=== PATIENT | male | born 2005 | race Two or more races ===

== ENCOUNTER 2023-07-01 01:24 | Inpatient (IN) | payer MEDICAID, SELFPAY ==
[2023-07-01] VITALS (10 sets, daily range): BP systolic 103–132; BP diastolic 67–90; PULSE 73–109; RESP 16–18; TEMP 36.8–38; O2SAT 92–99; BMI 18.6; BMI 18.1
--- NOTE | 2023-07-01 01:47 | CRLHL7_ITS ---
For Patients: As a result of the Century Cures Act, medical imaging exams and procedure reports are released immediately into your electronic medical record. You may view this report before your referring provider. If you have questions, please contact your health care provider. INDICATION: Abdominal pain TECHNIQUE: CT abdomen and pelvis acquired with 46 cc Isovue 370 IV contrast. COMPARISON: Abdominal MR February 01, 2022 FINDINGS: Lower chest: Unremarkable. Liver: Unremarkable. Spleen: Unremarkable. Pancreas: Unremarkable. Gallbladder and bile ducts: Unremarkable. Adrenal glands: Unremarkable. Kidneys: Unremarkable. GI tract: Multiple loops of dilated small bowel measuring up to 3.7 cm in diameter. Transition point is in the mid abdomen on images 79-87. No free air or pneumatosis. No free fluid. No swirled appearance of the mesenteric vessels. There is a small bowel feces sign directly proximal to the site of obstruction. The colon is decompressed. Vascular structures: Unremarkable. Lymph nodes: Unremarkable. Miscellaneous: Unremarkable. Pelvic Organs: Unremarkable. Bones: Unremarkable for age. IMPRESSION: Small-bowel obstruction. Transition point appears to be within the mid abdomen. No pneumatosis or free air. Please note that all CT scans at this facility use dose modulation, iterative reconstruction, and/or weight-based dosing when appropriate to reduce radiation dose to as low as reasonably achievable. Dictated by Margarita Garcia MD @ 07/01/2023 2:47:54 AM (Electronically Signed)
--- NOTE | 2023-07-01 01:49 | ED.ABDPAIN ---
HPI - Abdominal Pain General Chief Complaint: Abdominal Pain Stated Complaint: Abdominal Pain Time Seen by Provider: 07/01/23 01:47 History of Present Illness HPI narrative: Patient is a 17-year-old young man who comes in with upper abdominal pain. He states he has had pain for the last 24 hours. He has had low-grade fever no dysuria no nausea no vomiting. States she has been having normal bowel movements. Patient has a history of congenital hernia repair in the distant past as well as pancreatic cyst choledocholithiasis and a distant history of gastrostomy tube placement. Patient states he is currently taking no medications and has had no further problems with his abdomen since being seen approximately a 15 months ago at which time he was treated and released for abdominal pain which resolved on its own although he did have 2 filling defects in the common bile duct on CT scan as well as mild gallbladder distension. Patient has otherwise been feeling fine it has been eating and drinking normally until the last 24 hours. Related Data Home Medications Medication Instructions Recorded Confirmed No Known Home Medications 07/01/23 07/01/23 Allergies Allergy/AdvReac Type Severity Reaction Status Date / Time No Known Drug Allergies Allergy Verified 07/01/23 01:35 Review of Systems Status of ROS Reports: 10 or more systems reviewed and unremarkable except as noted in History and below [facility] Medical History Pancreatic cyst ?K86.2 - Cyst of pancreas (ICD-10) SBO (small bowel obstruction) ?K56.609 - Unspecified intestinal obstruction, unspecified as to partial versus complete obstruction (ICD-10) Dyspepsia ?R10.13 - Epigastric pain (ICD-10) Abdominal hernia ?K46.9 - Unspecified abdominal hernia without obstruction or gangrene (ICD-10) Social History Non-prescribed substance use: denies use Exam Narrative: Exam Narrative: EXAM GENERAL: Patient appears comfortable and well. EYES: No scleral icterus. LYMPH: No supraclavicular or cervical lymphadenopathy. SKIN: Visible skin seen during exam normal or with benign process only. EXT: No dependent lower extremity pedal edema. HEART: Regular rate and rhythm with no murmurs, rubs, or gallops. LUNGS: Clear to auscultation bilaterally with no crackles or wheezes. ABD: Soft, non tender, non distended. Previous incisions noted. PSYCH: Good eye contact, speech is not pressured. Const: Vital Signs, click to edit/add: Vital Signs - 24 hr 07/01/23 01:30 07/01/23 03:19 Temperature 100.4 F H 99.7 F H Pulse Rate [Pulse Oximeter] 104 H 87 Respiratory Rate 18 16 Blood Pressure [Ri ght Upper Arm] 132/90 H 120/77 Pulse Oximetry 99 98 Oxygen Delivery Me thod Room Air Room Air Course Course ED Course: Patient seen examined IV placed. Normal saline given. Blood cultures CBC CMP amylase lactate UA CT abdomen pelvis ordered. Vital Signs Vital signs: Initial Vital Signs Temperature 100.4 F H 07/01/23 01:30 Temperature Source Temporal Artery Scan 07/01/23 01:30 Pulse Rate 104 H 07/01/23 01:30 Respiratory Rate 18 07/01/23 01:30 Blood Pressure 132/90 H 07/01/23 01:30 Blood Pressure Mean 104 07/01/23 01:30 Blood Pressure Position Supine 07/01/23 01:30 Pulse Oximetry 99 07/01/23 01:30 Oxygen Delivery Method Room Air 07/01/23 01:30 Vital Signs Temperature 100.4 F H 07/01/23 01:30 Pulse Rate 104 H 07/01/23 01:30 Respiratory Rate 18 07/01/23 01:30 Blood Pressure 132/90 H 07/01/23 01:30 Pulse Oximetry 99 07/01/23 01:30 Oxygen Delivery Method Room Air 07/01/23 01:30 Temperature 99.7 F H 07/01/23 03:19 Pulse Rate 87 07/01/23 03:19 Respiratory Rate 16 07/01/23 03:19 Blood Pressure 120/77 07/01/23 03:19 Pulse Oximetry 98 07/01/23 03:19 Oxygen Delivery Method Room Air 07/01/23 03:19 MDM - Abdominal Pain MDM Narrative Medical decision making narrative: Patient is a 17-year-old gentleman who has history of diaphragmatic hernia as a child with small-bowel obstructions subsequently who presents with abdominal pain. His CT of the abdomen pelvis is consistent with small-bowel obstruction. Patient also has history of cholelithiasis and questionable choledocholithiasis. Patient has no significant right upper quadrant pain but his pain is in the mid abdomen consistent with small-bowel obstruction. He does have a white blood cell count as well as low-grade fever. Blood cultures were collected. Lactate was normal. I did begin hydration with normal saline. His initial potassium has come back elevated at 6.3 although lab tells me this is likely an error. Repeat is pending. Also noted is a elevated bilirubin and AST which could be consistent with underlying gallbladder disease. Repeat potassium is 4.5. Patient is discuss with the hospitalist and is admitted for further evaluation with likely surgery consult in the morning with a consideration of gallbladder ultrasound workup of elevated bilirubin as well as continued treatment and workup of small-bowel obstruction. I do not believe he needs a NG tube at this point. Differential Diagnosis Differential diagnosis: Likely abdominal pain, acute appendicitis, calculus of kidney, constipation, diverticulitis, gastroenteritis, pancreatitis and small bowel obstruction Lab Data Labs: Lab Results 07/01/23 Range/Units 01:55 WBC 11.81 H (4.50-11.00) K/uL RBC 6.15 H (4.30-5.90) m/uL Hgb 17.9 H (13.5-17.5) gm/dL Hct 50.3 (37.0-53.0) % MCV 82 (80-100) fL MCH 29 (26-34) pg MCHC 36 (32-36) gm/dL RDW Coeff of Ronald 12.3 (11.5-15.5) % Plt Count 332 (140-440) K/uL Neut % (Auto) 88.1 H (42.0-72.0) % Lymph % (Auto) 6.4 L (20-44) % Marion % (Auto) 5.3 (0.0-11.0) % Eos % (Auto) 0.0 (0.0-7.0) % Baso % (Auto) 0.1 (0.0-3.0) % Neut # (Auto) 10.40 H (1.7-7.0) K/uL Lymph # (Auto) 0.80 L (0.90-2.90) K/uL Marion # (Auto) 0.60 (0.00-0.90) K/UL Eos # (Auto) 0.00 (0.00-0.50) K/uL Baso # (Auto) 0.00 (0.00-0.30) K/uL Abs Immat Gran (auto) 0.00 (0.00-0.30) K/uL Imm/Tot Granulo (auto) 0.1 % Sodium 138 (135-149) mmol/L Potassium 6.3 H* (3.6-5.1) mmol/L Chloride 95 L (96-114) mmol/L Carbon Dioxide 22 (20-32) mmol/L Anion Gap 21 H (7-15) mEq/L BUN 15 (5-24) mg/dL Creatinine 0.7 (0.6-1.2) mg/dL Estimated Creat Clear 103.45 Estimated GFR 136 ml/min Glucose 125 H (60-115) mg/dL Lactate 1.6 (0.5-1.9) mmol/L Calcium 10.2 (8.7-10.8) mg/dL Total Bilirubin 3.1 H (0.1-1.5) mg/dL AST 76 H (12-35) U/L ALT 20 (4-50) U/L Alkaline Phosphatase 96 (65-260) U/L Total Protein 10.4 H (6.0-8.3) g/dL Amylase 100 H (18-89) U/L Urine Color Maddie A (Yellow) Urine Appearance Clear (Clear) Urine pH 6.0 (5.0-8.5) Ur Specific Broad Top >= 1.030 (1.000-1.030) Urine Protein 2+ A (Negative) Urine Glucose (UA) Negative (Negative) Urine Ketones 3+ A (Negative) Urine Blood Negative (Negative) Urine Nitrite Negative (Negative) Urine Bilirubin 1+ A (Negative) Urine Urobilinogen 0.2 (0.2-1.0) Ur Leukocyte Esterase Negative (Negative) Urine RBC 0-2 (0-2) Urine WBC 2-5 (0-5) Ur Squamous Epith Cells Few (None-Few) Urine Bacteria Few A (None) Fine Granular Casts Few A (None) Discharge Plan Discharge Clinical Impression: Partial small bowel obstruction Patient Disposition: Admitted As Observation Condition: Stable Activity Level: Other Discharge Diet: Other Prescriptions: No Action No Known Home Medications Follow Up/Referrals: Marlee Olivo, ATC [Heel Top Lift Splitter Certified] -
[2023-07-01 02:11] LABS: Lactate* 1.6 mmol/L (0.5-1.9)
[2023-07-01 02:12] LABS: Basophils Percent Auto 0.1 % (0.0-3.0); Hematocrit 50.3 % (37.0-53.0); Hemoglobin* 17.9 gm/dL (13.5-17.5); Immature Granulocytes Pct Auto 0.1 %; Lymphocytes Percent Auto 6.4 % (20-44); Mean Corpuscular HGB Conc 36 gm/dL (32-36); Mean Corpuscular Hemoglobin 29 pg (26-34); Mean Corpuscular Volume 82 fL (80-100); Monocytes Percent Auto 5.3 % (0.0-11.0); Neutrophils Percent Auto 88.1 % (42.0-72.0); Platelet Count* 332 K/uL (140-440); RDW Coefficient of Variation % 12.3 % (11.5-15.5); Red Blood Count 6.15 m/uL (4.30-5.90); White Blood Count* 11.81 K/uL (4.50-11.00)
[2023-07-01 02:14] LABS: Slide Review Reflex No
[2023-07-01 02:15] LABS: Appearance Urine Clear (Clear); Bilirubin Urine 1+ (Negative); Blood Urine Negative (Negative); Color Urine Amber (Yellow); Glucose Urine Negative (Negative); Ketones Urine 3+ (Negative); Leukocyte Esterase Urine Negative (Negative); Nitrite Urine Negative (Negative); Protein Urine 2+ (Negative); Specific Gravity Urine >= 1.030 (1.000-1.030); Urobilinogen Urine 0.2 (0.2-1.0)
[2023-07-01 02:25] LABS: Bacteria Urine Few; Fine Granular Casts Urine Few; RBC Urine 0-2 (0-2); Squamous Epithelial Cell Urine Few (None-Few)
[2023-07-01] MEDS: ACETAMINOPHEN 500 MG TABLET 1000 MG PO (02:25)
[2023-07-01] MEDS: 0.9 % SODIUM CHLORIDE 1000 ml 1,000 ML IV (02:25)
--- OUTSIDE RECORDS SUMMARY | 2023-07-01 02:42 | XMS_ITS | Continuity of Care Document ---
Author Name Unknown Organization [facility] Address [address] [address] [place] [address] Phone Care Team Providers Care Cloth Shrinking Supervisor Name Role Phone Russ Wilkins MD Unavailable Unavailable Allergies, Adverse Reactions, Alerts Substance Reaction Status Criticality No Known Allergies Active No Inform ation Medications Medication Instructions Dosage Effective Dates (start - stop) Status Comments No Drug Therapy Prescribed Procedures Procedure Date Offic/outpt E&m Estab Mod-hi 2 Offic/outpt E&m Estab Mod-hi 2 19 Offic/outpt E&m New Mod-hi Routine Serum Collection Gg; Iga, Igd, Igg, Igm, Ea Advance Directives Directive Yes / No Effective Date File Name No Information Encounters Encounter Description Practice Location Reason(s) For Visit Diagnoses Date Provider Providers Copied on Encounter [facility], [address] [address], [place], [id number], [place] tel:[phone] [facility] No Information 2 Claudette Solano. [address] [facility], [place], [place], [id number], [place]. tel:[phone] [facility], [address] [address], [place], [id number], [place] tel:[phone] [facility] No Information 2 Claudette Solano. [address] [facility], [address] [facility] [address], [place], [place], [id number], [place]. tel:[phone] Offic/outpt E&m [facility] 2 [facility], [address] [address], [place], [id number], [place] tel:[phone] [facility] Symptoms or Concerns (chief complaint) Short statureG tube feedings 9 No Information Offic/outpt E&m [facility] 2 [facility], [address] [address], [place], [id number], [place] tel:[phone] [facility] Symptoms or Concerns (chief complaint) G tube feedingsShort stature 9 No Information Offic/outpt E&m [facility], [address] [address], [place], [id number], [place] tel:[phone] [facility] Symptoms or Concerns (chief complaint) Short statureG tube feedings 9 No Information Family History Family Member Type Diagnosis Age At Onset Father Problem (finding) Alive and well Mother Problem (finding) gallbladder disease Sister Problem (finding) Alive and well Immunizations Vaccine Date Status Comments SARS-COV-2 (COVID-19) vaccin e, mRNA, spike protein, LNP, preservative free, 30 mcg/0.3mL dose administered Note: [facility] bi-direct ional interface ; Source: Other Registry SARS-COV-2 (COVID-19) vaccin e, mRNA, spike protein, LNP, preservative free, 30 mcg/0.3mL dose administered Note: [facility] bi-direct ional interface ; Source: Other Registry meningococcal B vaccine, recombinant, OMV, adjuvanted administered Note: [facility] bi-directional interface ; Source: Other Registry meningococcal B vaccine, recombinant, OMV, adjuvanted administered Note: [facility] bi-directional interface ; Source: Other Registry meningococcal polysaccharide (groups A, C, Y and W-135) diphtheria toxoid conjugate vaccine (MCV4P) administered Note: [facility] bi-direct ional interface ; Source: Other Registry Afluria Qd administered Note: [facility] bi-directional interface ; Source: Other Registry Influenza, injectable, MDCK, preservative free Flucelvax Quad administered Source: Other Provid er meningococcal polysaccharide (groups A, C, Y and W-135) diphtheria toxoid conjugate vaccine (MCV4P) administered Note: [facility] bi-direct ional interface ; Source: Other Registry hepatitis A vaccine, unspeci fied formulation administered Note: [facility] bi-direct ional interface ; Source: Other Registry varicella virus vaccine administered Note : [facility] bi-directional interface ; Source: Other Registry measles, mumps and rubella v irus vaccine administered Note: [facility] bi-direct ional interface ; Source: Other Registry diphtheria, tetanus toxoids and pertussis vaccine administered Note: [facility] bi-direct ional interface ; Source: Other Registry hepatitis A vaccine, unspeci fied formulation administered Note: [facility] bi-direct ional interface ; Source: Other Registry measles, mumps and rubella v irus vaccine administered Note: [facility] bi-direct ional interface ; Source: Other Registry varicella virus vaccine administered Note : [facility] bi-directional interface ; Source: Other Registry Haemophilus influenzae type b vaccine, conjugate unspecified formulation administered Note: [facility] bi-direct ional interface ; Source: Other Registry Haemophilus influenzae type b vaccine, conjugate unspecified formulation administered Note: [facility] bi-direct ional interface ; Source: Other Registry diphtheria, tetanus toxoids and pertussis vaccine administered Note: [facility] bi-direct ional interface ; Source: Other Registry hepatitis B vaccine, unspeci fied formulation administered Note: [facility] bi-direct ional interface ; Source: Other Registry Haemophilus influenzae type b vaccine, conjugate unspecified formulation administered Note: [facility] bi-direct ional interface ; Source: Other Registry diphtheria, tetanus toxoids and pertussis vaccine administered Note: [facility] bi-direct ional interface ; Source: Other Registry hepatitis B vaccine, unspeci fied formulation administered Note: [facility] bi-direct ional interface ; Source: Other Registry Haemophilus influenzae type b vaccine, conjugate unspecified formulation administered Note: [facility] bi-direct ional interface ; Source: Other Registry hepatitis B vaccine, unspeci fied formulation administered Note: [facility] bi-direct ional interface ; Source: Other Registry diphtheria, tetanus toxoids and pertussis vaccine administered Note: [facility] bi-direct ional interface ; Source: Other Registry Payers Payer name Insurance type Covered libertarian ID Authoriza tion(s) No Information Social History Type Description Quantity Date Captured Comments Alcohol Use Details Unknown Caffeine Use Details Unknown Tobacco Use Status No Information Smoking Status No Information Sex Male Chief Complaint And Reason For Visit No Information Reason For Referral Reason For Referral No Information Plan Of Treatment Date Type Action Status Referral Ordered: referred to Endocrinology - Pediatric short stature 2 Weeks Appointment date/timeframe: 14 Days ordered History Of Present Illness Encounter Date Complaint History Of Prese nt Illness GI Symptoms or Concerns Wang Arevalo is a 13-year-old boy, seen in [facility], accompanied by his mother, younger sister, and a forest products teacher. He is seen in followup of issues relating to short stature and gastrostomy feedings. He was last seen by me January 09, 2019. He has a history of congenital diaphragmatic hernia status post repair with gastrostomy tube feedings that were used, stopped, and then the gastrostomy tube was reinserted for nutritional needs. He has short stature and plots out at 0.1 percentile. His weight was 101.08 pounds at the last visit. He has no specific GI complaints. He did take 2 bottles of Boost daily for the first month after seeing me in clinic, but mom ran out of the Boost and did not let anyone know about it until 6 days ago, when she saw a dietitian who has made arrangements for the Boost to be reinstituted. He has now lost 3.8 pounds since the last clinic visit. He has not used his gastrostomy tube in 6 months and will like to hav GI Symptoms or Concerns Wang Arevalo is a 13-year-old boy who returns to [facility] accompanied by his mother and younger sibling and a forest products teacher in followup of short stature and gastrostomy tube feedings. He was last seen by me on September 20, 2018. He has a history of congenital diaphragmatic hernia status post repair with gastrostomy tube feedings that were used, stopped and then gastrostomy tube was reinserted for nutritional needs. He has short stature and plots out at the 0.1 percentile. His weight was at the 5.3 percentile at the last visit. He has no specific GI complaints. He stopped using his G-tube 3 months ago, and is taking all everything by mouth. He is using Boost Plus as a supplement. His weight has increased more than 3 pounds and he is now up to 101.08 and plots out of the 6.2 percentile. His height has increased 0.83 inches and he is plotting out at 0.1 percentile. He was seen by Endocrinology who did growth hormone stimulation testing an GI Symptoms or Concerns Wang Arevalo is a 13-year-old boy seen in [facility] accompanied by his mother, father, and a forest products teacher. [place]. Wang was born with a congenital diaphragmatic hernia, which was corrected early in life and he had a gastrostomy tube, 1 month after . This was used to supplement feedings and he had it removed at 2 years of age; however, because of his poor growth and short stature 2 years ago, it was reinserted. Currently, his height plots out at the 0.1 percentile and his weight is at the 5.3 percentile. The family was using 2 to 3 cans of Boost Plus per day, but now since he is eating 3 meals a day, they have stopped doing this for about a month. Three weeks ago, when in [place], his G tube fell out and was replaced with a new 14-Qatari 2.5 cm MiniONE tube. When he was in [place] at [facility], he was seen by Endocrinology about 3 years ago. He was evaluated f Functional Status Date Functional Assessmen t No Information Medications Administered Medication Instructions Dosage Effective Dates (start - stop) Status Comments No Drug Therapy Prescribed Instructions Date Instruction Additional Infor alexander I recommend mom go a head and take the G tube out before going to sleep. He should not eat or drink anything 2 hours before this. The side should be covered with very absorbant dressing. Mom knows how to use the syringe to remove the water from the balloon and take the gastrostomy tube out. We can then follow it for a week and see if it is closing. If not, we will refer him to surgery. His dietitian has made arrangements for him to receive Boost Plus supplements 2 bottles per day. I recommended that mom contact us if she has any difficulty obtaining the Boost. Related to Short stature I have sent a prescr iption for Boost Plus 2 bottles per day. This can be given through the G-tube. Alternatively, he could take it by mouth. If he does not use the G-tube for 3 more months, then that would be 6 months total without G-tube use and we could then take the G-tube out. Previously he required surgical closure of his G-tube site and he may well need this again. I would recommend returning to clinic and see me in 3 months. Related to G tube feedings We will refer him to Endocrinology for evaluation and possible use of growth hormone to improve his height. We will treat his gastrostomy tube granulation tissue with triamcinolone cream 0.5% two to three times daily to the affected site. I made arrangements for the family to get a 14-Qatari 2.5 cm MiniONE gastrostomy tube and tubing and connectors from [facility]. We will also make arrangements to get all the records from [place] to review. We will have him return to clinic in 3 months' time. Related to Short stature Assessments Type Assessment Date No Information Patient Care Teams Name Effective Dates (start - stop) Status Members No Information
--- OUTSIDE RECORDS SUMMARY | 2023-07-01 02:42 | XMS_ITS | Continuity of Care Document ---
Author Name Unknown Organization [facility] Address [address] [address] [place] [address] Phone Care Team Providers Care Cipher Expert Name Role Phone Russ Wilkins MD Unavailable [...] Diagnoses Date Provider Providers Copied on Encounter [facility], [address] [address], [place], [id number], [place] tel:[phone] [facility] No Information 2 Claudette Solano. [address], [place], [place], [id number], [place]. tel:[phone] [facility], [address] [address], [place], [id number], [place] tel:[phone] [facility] No Information 2 Claudette Solano. [address], [facility] [address], [place], [place], [id number], [place]. tel:[phone] Offic/outpt E&m [facility] 2 [facility], [address] [address], [place], [id number], [place] tel:[phone] [facility] GI Symptoms or Concerns (chief complaint) Short statureG tube feedings 9 No Information Offic/outpt E&m [facility] 2 [facility], [address] [address], [place], [id number], [place] tel:[phone] [facility] GI Symptoms or Concerns (chief complaint) G tube feedingsShort stature 9 No Information Offic/outpt E&m [facility], [address] [address], [place], [id number], [place] tel:[phone] [facility] GI Symptoms or Concerns (chief complaint) Short [...] Registry Payers Payer name Insurance type Covered democrat ID Authoriza tion(s) No Information Social History [...] by his mother, younger sister, and a industrial truck driver. He is seen in followup of issues [...] his mother and younger sibling and a industrial truck driver in followup of short stature and gastrostomy [...] accompanied by his mother, father, and a industrial truck driver. They have moved to [place] from [place] and have been here about 4 months. [...] a month. Three weeks ago, when in [place], his G tube fell out and was replaced with a new 14-Guinean 2.5 cm MiniONE tube. When he was in [place] at [facility], he was seen by Endocrinology about 3 [...] arrangements for the family to get a 14-Guinean 2.5 cm MiniONE gastrostomy tube and tubing and connectors from [facility]. We will also make arrangements to get all the records from [place] to review. We will have him return to clinic in 3 months' time. Related to Short stature Assessments Type Assessment Date No Information Patient Care Teams Name Effective Dates (start - stop) Status Members No Information
[2023-07-01 03:28] LABS: Sodium* 140 mmol/L (135-149)
[2023-07-01 03:29] LABS: Anion Gap 16 mEq/L (7-15); Blood Urea Nitrogen* 14 mg/dL (5-24); Carbon Dioxide* 24 mmol/L (20-32); Chloride* 100 mmol/L (96-114); Creatinine* 0.8 mg/dL (0.6-1.2); Est. Creatinine Clearance* 90.52; Estimated Glomerular Filt Rate 131 ml/min; Potassium* 4.5 mmol/L (3.6-5.1)
[2023-07-01 03:30] LABS: Albumin* 4.7 g/dL (3.3-5.0); Aspartate Amino Transferase* 25 U/L (12-35); Bilirubin Total* 1.5 mg/dL (0.1-1.5); Calcium* 9.3 mg/dL (8.7-10.8); Glucose* 111 mg/dL (60-115); Total Protein* 7.7 g/dL (6.0-8.3)
[2023-07-01 03:31] LABS: Alanine Aminotransferase* 13 U/L (4-50); Alkaline Phosphatase* 73 U/L (65-260); Amylase* 79 U/L (18-89)
--- NOTE | 2023-07-01 03:49 | PC.NURSE ---
report to Kimberlee Mckeon/Vincent Dixon, patient going to room 260.
--- NOTE | 2023-07-01 03:57 | PC.NURSE ---
patient taken to room 260, alert via w/c. all belongings sent to [facility]
--- NOTE | 2023-07-01 04:35 | W.PM.TELEH&P ---
Telehealth- H&P: HPI History of Present Illness Date Seen: 07/01/23 Chief complaint: Abdominal Pain Narrative: Wang Arevalo is seen as an Interactive Telehealth visit. Wang Arevalo is a 17 year old male who presents to the emergency room with a 1 day history of abdominal pain. Wang has a significant past medical history of previous abdominal hernia repair and has had previous small bowel obstruction with his last being approximately a year ago. He states the pain in his abdomen slowly progressed over the last 24 hours and he has also experienced some nausea and vomiting x4. He states he is currently not nauseous at the time I am seeing him to but has not been able to tolerate p.o. intake for the last 24 hours. He denies any fever or chills. He is currently not taking any medications. Upon presentation to the emergency room, a CT scan was done which did show findings consistent with a small bowel obstruction. With his signs and symptoms and evidence of obstruction, he is currently being admitted to the medical service for further observation and treatment. At the time I am seeing Wang, he denies any other acute complaints or problems and states his pain is currently a 5 out of 10 and fairly well controlled. Review of Systems Status of ROS: Reports: 10 or more systems reviewed and unremarkable except as noted in History and below Cardio: Denies: chest pain or shortness of breath with exertion Resp: Denies: shortness of breath GI: Reports: abdominal pain, nausea and vomiting [facility] Medical History (Updated 07/01/23 @ 04:45 by Jose L Rodríguez MD) Pancreatic cyst ?K86.2 - Cyst of pancreas (ICD-10) SBO (small bowel obstruction) ?K56.609 - Unspecified intestinal obstruction, unspecified as to partial versus complete obstruction (ICD-10) Dyspepsia ?R10.13 - Epigastric pain (ICD-10) Abdominal hernia ?K46.9 - Unspecified abdominal hernia without obstruction or gangrene (ICD-10) Social History Non-prescribed substance use: denies use Meds Home Medications and Allergies Home Medications Medication Instructions Recorded Confirmed Type No Known Home Medications 07/01/23 07/01/23 History Allergies Allergy/AdvReac Type Severity Reaction Status Date / Time No Known Drug Allergies Allergy Verified 07/01/23 01:35 Exam Narrative Exam Narrative: Physical Exam GENERAL: ?vital signs reviewed, well developed and nourished, in minimal distress HEENT: pupils are equal round and reactive to light, extraocular movements are grossly within normal limits and oral mucosa is moist. NECK: Supple without lymphadenopathy or thyromegaly according to nursing staff examination observation HEART: Regular rate and rhythm without any rubs, murmurs, or gallops. LUNGS: Clear to auscultation bilaterally with good air movement throughout ABDOMEN: Observation from nurse assisted exam, abdomen appears soft with minimal tenderness over the mid-abdominal area. Nondistended with Positive bowel sounds noted. Well healed L lateral abdominal surgical scar is noted. EXTREMITIES: Strength and sensation is observed to be grossly within normal limits in the upper and lower extremities.? No focal strength deficit is observed. SKIN:? Observed warm and dry with color normal NEURO: Awake, Alert and Oriented X3 - No focal neurological deficits noted. Const Vital Signs, click to edit/add: Vital Signs - 24 hr 07/01/23 01:30 07/01/23 03:19 Temperature 100.4 F H 99.7 F H Pulse Rate [Pulse Oximeter] 104 H 87 Respiratory Rate 18 16 Blood Pressure [Right Upper Arm] 132/90 H 120/77 Pulse Oximetry 99 98 Oxygen Delivery Method Room Air Room Air Documenting provider has reviewed patient's vital signs: yes Hospitalist - H&P: Result Labs Labs: Short CBC 07/01/23 Range/Units 01:55 WBC 11.81 H (4.50-11.00) K/uL Hgb 17.9 H (13.5-17.5) gm/dL Hct 50.3 (37.0-53.0) % Plt Count 332 (140-440) K/uL BMP 07/01/23 01:55 Sodium 140 Potassium 4.5 Chloride 100 Carbon Dioxide 24 BUN 14 Creatinine 0.8 Glucose 111 Calcium 9.3 Liver Function 07/01/23 Range/Units 01:55 Total Bilirubin 1.5 (0.1-1.5) mg/dL AST 25 (12-35) U/L ALT 13 (4-50) U/L Alkaline Phosphatase 73 (65-260) U/L Albumin 4.7 (3.3-5.0) g/dL Urine 07/01/23 Range/Units 01:55 Urine Color Maddie A (Yellow) Urine Appearance Clear (Clear) Urine pH 6.0 (5.0-8.5) Ur Specific [place] >= 1.030 (1.000-1.030) Urine Protein 2+ A (Negative) Urine Glucose (UA) Negative (Negative) Imaging CT scan - abdomen: Attestation: I have reviewed the pertinent imaging results. Radiologist's impression: Small-bowel obstruction. Transition point appears to be within the mid abdomen. No pneumatosis or free air. Assessment and Plan Assessment and plan (1) SBO (small bowel obstruction): Status: Acute Plan Assessment: 1. Abdominal pain with nausea and vomiting 2. CT scan evidence of acute small bowel obstruction contributing to #1 above 3. Volume depletion/dehydration from #1 above 4. Minor polycythemia most likely due to #3 above 5. Mild leukocytosis?most likely stress response with no sign of obvious acute infection 6. History of previous abdominal surgery?hernia repair?most likely contributing to #1 #2 above Plan: At this time Wang will be admitted to the medical service. We will continue with conservative observation therapy with n.p.o. treatment and hopes of resolution of his small bowel obstruction with the ongoing conservative treatment. I will provide some IV fluid for hydration and volume resuscitation as he does appear to be somewhat volume depleted with his inability to tolerate p.o. intake and recent nausea and vomiting. He is currently not nauseous, but I will supply as needed antinausea medications if required. I will also provide as needed pain medications if his abdominal pain should worsen. If he should start having some nausea and return of his vomiting, I did explain to him that we would suggest starting an NG at that time for ongoing treatment. I will hold off on consulting surgery at this point, but if he continues to have ongoing evidence of small bowel obstruction over the next 12 to 24 hours, a surgical consult could be considered. I will follow-up with chemistries and hematology labs for the a.m. I have explained this plan to Wang and he is agreeable to proceed. We will continue to follow closely from medical standpoint. Telehealth: Statement Statement Telehealth Visit: Today's History and Physical is provided via interactive telehealth by Jose L Rodríguez MD.? Patient is located at [facility].? Provider is located at [facility].? Nursing staff assisted with the patient's exam. The visit being done today meets criteria for a telehealth visit and the patient or patient?s parent/guardian is aware the visit is a telehealth visit. Camera Start Time: 04:13 Camera End Time: 04:25
[2023-07-01] MEDS: LACTATED RINGERS 1000 ML 1,000 ML 125 ML IV (05:14)
[2023-07-01] MEDS: ONDANSETRON 2 MG/ML inj 4 MG IVP ×2 (06:12→14:26)
--- NOTE | 2023-07-01 06:28 | PC.NURSE ---
Addendum entered by Thu Mace RN 07/01/23 06:53: 400mL green emesis Original Note: end of shift - pt arrived from ED at approximately 3:55. pt is pleasant and cooperative. Pt is independent in room. Pt is NPO upon admission per MD orders, has not voided or had a BM during this shift. Pt reported pain in abdomen as 5/10 managed per interventions in MAR. Aqua K pad applied to abdomen for comfort. Pt reported nausea with no emesis. Relief verbalized per interventions in MAR. Pt resting at end of shift
--- NOTE | 2023-07-01 08:27 | CRLHL7_ITS ---
For Patients: As a result of the Century Cures Act, medical imaging exams and procedure reports are released immediately into your electronic medical record. You may view this report before your referring provider. If you have questions, please contact your health care provider. INDICATION: CKING NG TUBE PLACEMENT History: Line placement. Comparison: CT of the abdomen and pelvis, 07/01/2023. Technique: Chest one view portable sitting. Findings: The tip of the enteric catheter is in the stomach. Small bowel is dilated, measuring up to 3.5 cm in luminal dimension. The heart size and pulmonary vasculature are within normal limits. There is no pneumothorax. There is no deep sulcus sign. IMPRESSION: The tip of the enteric catheter is in the stomach. Report called to the zinc furnace charger, 07/01/23, 0903 hours. Dictated by Rajat Snider MD @ 07/01/2023 9:04:59 AM Dictated by: Rajat Snider MD @ 07/01/2023 09:05:10 (Electronically Signed)
[2023-07-01] MEDS: LACTATED RINGERS 500 ML 500 ML IV (09:40)
[2023-07-01] MEDS: PROCHLORPERAZINE 5 MG/ML VIAL 10 MG IV (09:48)
[2023-07-01] MEDS: 5 % DEXTROSE IN LAC RINGER'S 1,000 ML 125 ML IV ×2 (10:19→22:08)
--- NOTE | 2023-07-01 11:09 | PM.GSCN ---
History of Present Illness Consult details Date Seen: 07/01/23 Consult date: 07/01/23 Narrative: Patient presented to the emergency department last night with a one-day history of abdominal pain, nausea and vomiting. He has had symptoms like this before. Most notably he was admitted in December 2021 for small-bowel obstruction. Since being in the hospital he has had an NG tube that was placed, this is causing him irritation in making him gag. He currently feels like his abdominal pain has improved since being admitted. He denies any bloating sensation. He has not yet gotten up and walked around. Denies passing any gas. No appetite. 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 His previous hospital stay for small-bowel obstruction was able to be managed with conservative medical management. Review of Systems Status of ROS: Reports: 6 or more systems reviewed and unremarkable except as noted in History and below [facility] Medical History (Updated 07/01/23 @ 04:45 by Jose L Rodríguez MD) Pancreatic cyst ?K86.2 - Cyst of pancreas (ICD-10) SBO (small bowel obstruction) ?K56.609 - Unspecified intestinal obstruction, unspecified as to partial versus complete obstruction (ICD-10) Dyspepsia ?R10.13 - Epigastric pain (ICD-10) Abdominal hernia ?K46.9 - Unspecified abdominal hernia without obstruction or gangrene (ICD-10) Social History What is your current living situation?: I presently have a place to live Problems where you live: no known problems Problems where you live details: n/a In the past 12 months, utilities in danger of being shut off: no In past 12 months, lack of transportation kept you from medical appts, meetings, work, or getting things needed for daily living: no In the past 12 mos, have been you worried that your food would run out before you had money to buy more?: never true In the past 12 mos, the food you bought just didn't last and you didn't have money to buy more?: never true Highest level of school completed/degree received: high school graduate Smoking Status: Never smoker Do you use any of these nicotine containing products: None How often do you have a drink containing alcohol: never AUDIT-C Alcohol total score: 0 Non-prescribed substance use: denies use How often does anyone, including family, friends and others, physically hurt you: never How often does anyone, including family, friends and others, insult or talk down to you: never How often does anyone, including family, friends and others, threaten you with harm: never How often does anyone, including family, friends and others, scream or curse at you: never Meds Home Medications and Allergies Home Medications Medication Instructions Recorded Confirmed Type No Known Home Medications 07/01/23 07/01/23 History Allergies Allergy/AdvReac Type Severity Reaction Status Date / Time No Known Drug Allergies Allergy Verified 07/01/23 01:35 Exam Narrative: Exam Narrative: General: Alert and oriented, no acute distress Respiratory: Equal breath rise bilaterally, maintained on room air HEENT: NG tube in place. Approximately 500 mL clear bile tinged gastric contents within canister. NG tube with clear output, patient is actively eating ice chips. Abdomen: Soft, nontender nondistended. No guarding or rebound. Previously well-healed left upper quadrant incisions Const: Vital Signs, click to edit/add: Vital Signs - 24 hr 07/01/23 01:30 07/01/23 03:19 07/01/23 04:00 Temperature 100.4 F H 99.7 F H 98.5 F Pulse Rate [Pulse Oximeter] 104 H 87 82 Respiratory Rate 18 16 16 Blood Pressure [Ri ght Arm] 127/80 Blood Pressure [Ri ght Upper Arm] 132/90 H 120/77 Pulse Oximetry 99 98 99 Oxygen Delivery Me thod Room Air Room Air Room Air 07/01/23 04:07 07/01/23 08:42 07/01/23 09:00 Temperature 98.9 F Pulse Rate [Pulse Oximeter] 109 H 107 H Respiratory Rate 16 16 Blood Pressure [Ri ght Arm] 127/86 Blood Pressure [Ri ght Upper Arm] Pulse Oximetry 99 95 Oxygen Delivery Me thod Room Air Room Air Results Labs Labs: Abnormal lab results 07/01/23 Range/Units 01:55 WBC 11.81 H (4.50-11.00) K/uL RBC 6.15 H (4.30-5.90) m/uL Hgb 17.9 H (13.5-17.5) gm/dL Neut % (Auto) 88.1 H (42.0-72.0) % Lymph % (Auto) 6.4 L (20-44) % Neut # (Auto) 10.40 H (1.7-7.0) K/uL Lymph # (Auto) 0.80 L (0.90-2.90) K/uL Anion Gap 16 H (7-15) mEq/L Urine Color Maddie A (Yellow) Urine Protein 2+ A (Negative) Urine Ketones 3+ A (Negative) Urine Bilirubin 1+ A (Negative) Urine Bacteria Few A (None) Fine Granular Casts Few A (None) Diabetes panel 07/01/23 Range/Units 01:55 Sodium 140 (135-149) mmol/L Potassium 4.5 (3.6-5.1) mmol/L Chloride 100 (96-114) mmol/L Carbon Dioxide 24 (20-32) mmol/L BUN 14 (5-24) mg/dL Creatinine 0.8 (0.6-1.2) mg/dL Glucose 111 (60-115) mg/dL Calcium 9.3 (8.7-10.8) mg/dL AST 25 (12-35) U/L ALT 13 (4-50) U/L Alkaline Phosphatase 73 (65-260) U/L Total Protein 7.7 (6.0-8.3) g/dL Albumin 4.7 (3.3-5.0) g/dL Calcium panel 07/01/23 Range/Units 01:55 Calcium 9.3 (8.7-10.8) mg/dL Albumin 4.7 (3.3-5.0) g/dL Pituitary panel 07/01/23 Range/Units 01:55 Sodium 140 (135-149) mmol/L Potassium 4.5 (3.6-5.1) mmol/L Chloride 100 (96-114) mmol/L Carbon Dioxide 24 (20-32) mmol/L BUN 14 (5-24) mg/dL Creatinine 0.8 (0.6-1.2) mg/dL Glucose 111 (60-115) mg/dL Calcium 9.3 (8.7-10.8) mg/dL Adrenal panel 07/01/23 Range/Units 01:55 Sodium 140 (135-149) mmol/L Potassium 4.5 (3.6-5.1) mmol/L Chloride 100 (96-114) mmol/L Carbon Dioxide 24 (20-32) mmol/L BUN 14 (5-24) mg/dL Creatinine 0.8 (0.6-1.2) mg/dL Glucose 111 (60-115) mg/dL Calcium 9.3 (8.7-10.8) mg/dL Total Bilirubin 1.5 (0.1-1.5) mg/dL AST 25 (12-35) U/L ALT 13 (4-50) U/L Alkaline Phosphatase 73 (65-260) U/L Total Protein 7.7 (6.0-8.3) g/dL Albumin 4.7 (3.3-5.0) g/dL All other labs normal. Imaging Abdomen CT scan report/results: report reviewed and image reviewed Assessment and Plan Assessment and plan (1) SBO (small bowel obstruction): Status: Acute Plan Patient is a 17-year-old male who presents with a small-bowel obstruction. This is likely secondary to adhesions given the patient's positive abdominal surgical history. Agree with starting with medical management. Continue NG tube decompression. I discussed with the patient that if he fails to improve or worsens he may need surgery to lyse adhesions and/or possibly resect some small bowel. I did encourage that the patient get up and ambulate. Due to his discomfort from the NG tube he is okay to chew gum. Okay for a few hard candies, please avoid red or green. Will also order lozenges as needed. -NPO, NG tube low intermittent suction -encourage ambulation Please call with any acute clinical changes, questions or concerns.
--- NOTE | 2023-07-01 12:44 | P.IMPN_ITS ---
Progress Note: A&P Assessment and plan (1) SBO (small bowel obstruction): Problem details: IV pain medicines, IV fluids, IV antiemetics, NG tube. Plan conservative management. Consult surgery. Status: Acute Plan Continue in hospital for management of small bowel obstruction. Time Spent With Patient Total time spent: Total time spent today is 35 minutes, 30 minutes in coordination of care and discussion with patient and other providers ongoing plan of care for management. Subjective Date Seen: 07/01/23 Interval history: 17-year-old male admitted to the hospital with a one-day history of abdominal pain and vomiting. Patient had previous diaphragmatic hernia repair as a young child. In December of 2021 he was hospitalized here with a small-bowel obstruction that was thought secondary to adhesions from that childhood surgery. He was t reated conservatively and had uncomplicated recovery. He had abnormality noted in his biliary tract on CT. As an outpatient had a subsequent MRCP which raise the possibility of common bile duct stones. He had normal LFTs and was asymptomatic. He was referred as an outpatient to GI but did not apparently follow through with that. He has not had any other gastrointestinal symptoms until yesterday. He was admitted to the hospital without an NG tube but then started vomiting so NG tube was placed. He reports his abdominal pain is mild. He is not seeking any medications for nausea or abdominal pain. He has no other health concerns. Exam Narrative: Exam Narrative: He is alert and appears in no distress. He speaks with a soft voice and is not very talkative. Respirations are clear to auscultation. Cardiovascular: S1, S2, regular rate and rhythm. Abdomen: Bowel sounds are diminished. Abdomen is soft. Has minimal epigastric tenderness. No mass. Const: Vital Signs, click to edit/add: Vital Signs - 24 hr 07/01/23 01:30 07/01/23 03:19 07/01/23 04:00 Temperature 100.4 F H 99.7 F H 98.5 F Pulse Rate [Pulse Oximeter] 104 H 87 82 Respiratory Rate 18 16 16 Blood Pressure [Ri ght Arm] 127/80 Blood Pressure [Ri ght Upper Arm] 132/90 H 120/77 Pulse Oximetry 99 98 99 Oxygen Delivery Me thod Room Air Room Air Room Air 07/01/23 04:07 07/01/23 08:42 07/01/23 09:00 Temperature 98.9 F Pulse Rate [Pulse Oximeter] 109 H 107 H Respiratory Rate 16 16 Blood Pressure [Ri ght Arm] 127/86 Blood Pressure [Ri ght Upper Arm] Pulse Oximetry 99 95 Oxygen Delivery Me thod Room Air Room Air 07/01/23 11:30 Temperature 98.6 F Pulse Rate [Pulse Oximeter] 104 H Respiratory Rate 16 Blood Pressure [Ri ght Arm] 123/76 Blood Pressure [Ri ght Upper Arm] Pulse Oximetry 92 Oxygen Delivery Me thod Room Air Documenting provider has reviewed patient's vital signs: yes Labs Labs: Laboratory Results - last 24 hr 07/01/23 01:55 WBC 11.81 H RBC 6.15 H Hgb 17.9 H Hct 50.3 MCV 82 MCH 29 MCHC 36 RDW Coeff of Ronald 12.3 Plt Count 332 Neut % (Auto) 88.1 H Lymph % (Auto) 6.4 L Morris % (Auto) 5.3 Eos % (Auto) 0.0 Baso % (Auto) 0.1 Neut # (Auto) 10.40 H Lymph # (Auto) 0.80 L Morris # (Auto) 0.60 Eos # (Auto) 0.00 Baso # (Auto) 0.00 Abs Immat Gran (auto) 0.00 Imm/Tot Granulo (auto) 0.1 Sodium 140 Potassium 4.5 Chloride 100 Carbon Dioxide 24 Anion Gap 16 H BUN 14 Creatinine 0.8 Estimated Creat Clear 90.52 Estimated GFR 131 Glucose 111 Lactate 1.6 Calcium 9.3 Total Bilirubin 1.5 AST 25 ALT 13 Alkaline Phosphatase 73 Total Protein 7.7 Albumin 4.7 Amylase 79 Urine Color Maddie A Urine Appearance Clear Urine pH 6.0 Ur Specific [place] >= 1.030 Urine Protein 2+ A Urine Glucose (UA) Negative Urine Ketones 3+ A Urine Blood Negative Urine Nitrite Negative Urine Bilirubin 1+ A Urine Urobilinogen 0.2 Ur Leukocyte Esterase Negative Urine RBC 0-2 Urine WBC 2-5 Ur Squamous Epith Cells Few Urine Bacteria Few A Fine Granular Casts Few A
[2023-07-01] MEDS: LACTATED RINGERS 1000 ML 1,000 ML IV (14:01)
--- NOTE | 2023-07-01 18:32 | PC.NURSE ---
End of Shift: Patient is alert and orientated. VSS on RA. Reported 4/10 nausea throughout the day Compazine and Zofran given 1x each, the patient denied anything offered for pain. Patient is very soft spoken and doesn't talk much. Had to continuously ask questions.. Did not get much sleep last night due to admission so maybe he is overly tired? 1 episode of clear/yellow emesis this AM of 100cc. Slept on and of throughout the day. L nare NG tube to LIS (20) @ 54 cm, secured with safety pin on his gown. NG is patent and draining moderate amounts of green/yellow stomach contents.... see I and O Abdomen is soft and tender.. Bowel sounds are hypoactive in all quadrants. The patient was bladder scanned this afternoon due to no urination. Bladder scanned for 187... Grey ordered a 1000 LR Bolus over 1 hr... After the bolus the patient voided 1x- urine was clear and dark gurpreet 500cc. IV in R forearm infusing D5 @ 125 an hr. NG tube is clapped when up... SBA to BR... took 1 walk around the unit today he was encouraged to walk more... Call light within reach. Sallie LESTER RN
[2023-07-02] MEDS: PROCHLORPERAZINE 5 MG/ML VIAL 10 MG IV (02:28)
[2023-07-02 03:00] VITALS: BP 118/75; PULSE 65; RESP 16; TEMP 37.6; O2SAT 96
[2023-07-02 06:35] LABS: Basophils Absolute Auto 0.02 K/uL (0.00-0.30); Basophils Percent Auto 0.2 % (0.0-3.0); Eosinophils Absolute Auto 0.02 K/uL (0.00-0.50); Eosinophils Percent Auto 0.2 % (0.0-7.0); Hematocrit 41.6 % (37.0-53.0); Hemoglobin* 14.4 gm/dL (13.5-17.5); Immature Granulocytes Abs Auto 0.01 K/uL (0.00-0.30); Immature Granulocytes Pct Auto 0.1 %; Lymphocytes Percent Auto 12.2 % (20-44); Mean Corpuscular HGB Conc 35 gm/dL (32-36); Mean Corpuscular Hemoglobin 29 pg (26-34); Mean Corpuscular Volume 84 fL (80-100); Monocytes Percent Auto 9.7 % (0.0-11.0); Neutrophils Percent Auto 77.6 % (42.0-72.0); Platelet Count* 275 K/uL (140-440); RDW Coefficient of Variation % 12.4 % (11.5-15.5); Red Blood Count 4.98 m/uL (4.30-5.90); White Blood Count* 9.46 K/uL (4.50-11.00)
[2023-07-02] MEDS: 5 % DEXTROSE IN LAC RINGER'S 1,000 ML 125 ML IV ×2 (06:35→15:13)
[2023-07-02 06:43] LABS: Slide Review Reflex No
[2023-07-02 07:00] LABS: Chloride* 105 mmol/L (96-114)
[2023-07-02 07:01] LABS: Potassium* 3.7 mmol/L (3.6-5.1); Sodium* 138 mmol/L (135-149)
[2023-07-02 07:03] LABS: Creatinine* 0.7 mg/dL (0.6-1.2); Est. Creatinine Clearance* 100.95; Estimated Glomerular Filt Rate 136 ml/min
[2023-07-02 07:04] LABS: Anion Gap 4 mEq/L (7-15); Blood Urea Nitrogen* 5 mg/dL (5-24); Calcium* 9.1 mg/dL (8.7-10.8); Carbon Dioxide* 29 mmol/L (20-32); Glucose* 114 mg/dL (60-115)
--- NOTE | 2023-07-02 07:43 | PC.NURSE ---
end of shift - pt cooperative and pleasant during shift. Tolerating NPO diet and NG tube. Pt up to bathroom x1 independent in room. Pt reported episode of nausea during shift, managed per intervention in MAR with verbalized relief. Pt denied pain, VSS, afebrile. Pt voiced concerns regarding having to work tonight. RN provided education regarding importance of remaining in hospital for duration of treatment. Pt did not provide comment regarding nurse suggestion. Pt appeared to be resting comfortably at end of shift.
[2023-07-02 08:40] VITALS: BP 139/79; PULSE 75; RESP 16; TEMP 37.2; O2SAT 97
--- NOTE | 2023-07-02 09:59 | PM.GSPN ---
Subjective Subjective Date Seen: 07/02/23 Interval history: Patient is very reserved, but does report feeling better compared to yesterday. He denies any appetite. No reported nausea this morning. He did get up and walk the halls 3 times yesterday. Who has not yet passed gas. Exam Narrative: Exam Narrative: General: Alert and oriented, nontoxic Respiratory: Equal breath rise, maintained on room air HEENT: NG tube in place, dark gastric output noted in tube and in canister. 1150 output recorded CV: Well perfused Abdomen: Soft, diffuse tenderness to palpation with some mild guarding, no rebound. No significant distention. Const: Vital Signs, click to edit/add: Vital Signs - 24 hr 07/01/23 11:30 07/01/23 15:30 07/01/23 19:00 Temperature 98.6 F 98.2 F 99.3 F Pulse Rate [Pulse Oximeter] 104 H 85 86 Respiratory Rate 16 16 16 Blood Pressure [Ri ght Arm] 123/76 103/67 125/80 Pulse Oximetry 92 97 95 Oxygen Delivery Me thod Room Air Room Air Room Air 07/01/23 23:00 07/02/23 03:00 07/02/23 08:40 Temperature 99.3 F 99.6 F 98.9 F Pulse Rate [Pulse Oximeter] 73 65 75 Respiratory Rate 16 16 16 Blood Pressure [Ri ght Arm] 110/73 118/75 139/79 Pulse Oximetry 96 96 97 Oxygen Delivery Me thod Room Air Room Air Room Air Labs/Imaging Labs Labs: No leukocytosis this morning (9) Imaging Imaging: No new imaging. Progress Note: A&P Assessment and plan (1) SBO (small bowel obstruction): Problem details: IV pain medicines, IV fluids, IV antiemetics, NG tube. Plan conservative management. Consult surgery. Status: Acute Assessment and Plan: Patient is a 17-year-old male, hospital day number 2 for small-bowel obstruction, likely secondary to adhesions. NG tube output continues to be high and bilious in character. On exam patient is slightly more tender for me compared to yesterday. Recommend continuing with medical management at this time, may consider Gastrografin challenge tomorrow if patient has not made any progress. -NPO, IV fluid -NG tube low intermittent suction -encourage ambulation. Patient to walk the halls at least 6 times -careful utilization of IV pain medicine Please call General surgery with any acute clinical changes, questions or concerns.
[2023-07-02 10:33] VITALS: BP 118/70; PULSE 88; RESP 16; TEMP 37.2; O2SAT 96
[2023-07-02 15:00] VITALS: BP 116/75; PULSE 92; RESP 18; TEMP 37.1; O2SAT 97
[2023-07-02] MEDS: 5 % DEX/0.9 SOD CHL+KCL 20 mEq 1,000 ML 125 ML IV ×2 (15:13→23:51)
--- NOTE | 2023-07-02 18:23 | PC.NURSE ---
End of Shift.. The patient is quiet, but pleasant. VSS on RA. NG remains in place... patent and draining dark green, chunky stomach contents. He had 300cc out throughout the day today. I irrigated it once this afternoon with 35cc. The patient was more motivated to walk today.. he pressed his call button to allow us to help disconnect him. He went on 3 walks around the unit today. NPO remains place, Ice chips as needed.. Vaseline for dry lips/nose. Upon 1500 assessment NG was @ 50 cm L nare it was advanced back to 54cm. No complaints of nausea this shift and no complaints of pain. A different fluids were started per Dr Grey... D5 with .9 NaCl was started @ 125 this afternoon. Two voids this shift for a total of 950cc. Call light within reach. Sallie LESTER RN
[2023-07-02 19:00] VITALS: BP 120/77; PULSE 93; RESP 20; TEMP 37.3; O2SAT 97
[2023-07-02 22:38] VITALS: BP 125/79; PULSE 88; RESP 16; TEMP 37.6; O2SAT 97
[2023-07-03 03:00] VITALS: BP 105/68; PULSE 88; RESP 16; TEMP 37.3; O2SAT 97
[2023-07-03 06:27] LABS: Basophils Absolute Auto 0.01 K/uL (0.00-0.30); Basophils Percent Auto 0.1 % (0.0-3.0); Eosinophils Absolute Auto 0.05 K/uL (0.00-0.50); Eosinophils Percent Auto 0.5 % (0.0-7.0); Hematocrit 43.3 % (37.0-53.0); Hemoglobin* 14.9 gm/dL (13.5-17.5); Immature Granulocytes Abs Auto 0.01 K/uL (0.00-0.30); Immature Granulocytes Pct Auto 0.1 %; Lymphocytes Percent Auto 13.6 % (20-44); Mean Corpuscular HGB Conc 34 gm/dL (32-36); Mean Corpuscular Hemoglobin 29 pg (26-34); Mean Corpuscular Volume 84 fL (80-100); Monocytes Percent Auto 9.9 % (0.0-11.0); Neutrophils Percent Auto 75.8 % (42.0-72.0); Platelet Count* 268 K/uL (140-440); RDW Coefficient of Variation % 12.1 % (11.5-15.5); Red Blood Count 5.16 m/uL (4.30-5.90); White Blood Count* 10.29 K/uL (4.50-11.00)
[2023-07-03 06:32] LABS: Slide Review Reflex No
[2023-07-03 06:40] LABS: Chloride* 106 mmol/L (96-114); Sodium* 139 mmol/L (135-149)
[2023-07-03 06:41] LABS: Potassium* 3.7 mmol/L (3.6-5.1)
[2023-07-03 06:43] LABS: Anion Gap 8 mEq/L (7-15); Carbon Dioxide* 25 mmol/L (20-32); Creatinine* 0.6 mg/dL (0.6-1.2); Est. Creatinine Clearance* 134.29; Estimated Glomerular Filt Rate 143 ml/min
[2023-07-03 06:44] LABS: Calcium* 9.2 mg/dL (8.7-10.8); Glucose* 110 mg/dL (60-115)
[2023-07-03 06:54] LABS: Blood Urea Nitrogen* < 2 mg/dL (5-24)
[2023-07-03 07:00] VITALS: BP 106/70; PULSE 82; RESP 16; TEMP 37.2; O2SAT 97
--- NOTE | 2023-07-03 07:31 | PC.NURSE ---
end of shift [id number] - Pt alert, oriented, and cooperative. Pt up independently and denies pain, nausea, and dizziness. Pt requested a shower during shift and denied discomfort while being disconnected from suction. Pt reported passing flatus during shift, denies BM. Tolerating NPO diet and ice chips. Family at bedside. Pt asked about NG tube removal and discharge, RN provided education and reinforced pt knowledge that MD will make decision regarding NG tube removal and diet advancement upon assessment. Pt verbalized understanding. Pt observed to sleep during shift, appears to be resting comfortably at end of shift.
[2023-07-03] MEDS: 5 % DEX/0.9 SOD CHL+KCL 20 mEq 1,000 ML 125 ML IV (08:00)
[2023-07-03 10:52] VITALS: BP 123/83; PULSE 94; RESP 16; TEMP 37.1; O2SAT 97
--- NOTE | 2023-07-03 11:01 | PM.GSPN ---
Subjective Subjective Date Seen: 07/03/23 Interval history: Patient doing well this morning. Did pass some gas overnight. No BM. Denies any appetite but no nausea or vomiting. Continues to be very soft spoken and reserved. Exam Narrative: Exam Narrative: Gen: alert and oriented, NAD Abd: soft, non tender and non distended. Const: Vital Signs, click to edit/add: Vital Signs - 24 hr 07/02/23 15:00 07/02/23 19:00 07/02/23 22:38 Temperature 98.8 F 99.1 F 99.7 F H Pulse Rate [Pulse Oximeter] 92 93 88 Respiratory Rate 18 20 16 Blood Pressure [Ri ght Arm] 116/75 120/77 125/79 Pulse Oximetry 97 97 97 Oxygen Delivery Me thod Room Air Room Air Room Air 07/03/23 03:00 07/03/23 07:00 07/03/23 10:52 Temperature 99.1 F 99.0 F 98.7 F Pulse Rate [Pulse Oximeter] 88 82 94 Respiratory Rate 16 16 16 Blood Pressure [Ri ght Arm] 105/68 106/70 123/83 Pulse Oximetry 97 97 97 Oxygen Delivery Me thod Room Air Room Air Room Air Progress Note: A&P Assessment and plan (1) SBO (small bowel obstruction): Problem details: IV pain medicines, IV fluids, IV antiemetics, NG tube. Plan conservative management. Consult surgery. Status: Acute Assessment and Plan: Patient is a 17-year-old male, hospital day number 3 for small-bowel obstruction, likely secondary to adhesions. Started passing gas last night. Will do a clamping trial of the NGT this morning. Anticipate possible removal this afternoon with slow advancement of diet. Discharge likely in the next 1-2 days.
--- NOTE | 2023-07-03 13:27 | PM.IMPN1 ---
Progress Note: A&P Assessment and plan (1) SBO (small bowel obstruction): Problem details: IV pain medicines, IV fluids, IV antiemetics, NG tube. Plan conservative management. Consult surgery. He is better today and passing gas. NG tube has been clamped and is now removed. Start clear liquid diet. Status: Acute Time Spent With Patient Total time spent: Total time spent today is 25 minutes, 20 minutes in coordination of care and discussing with patient and other providers management of small-bowel obstruction Subjective Date Seen: 07/03/23 Interval history: 17-year-old male admitted to the hospital with a one-day history of abdominal pain and vomiting. Patient had previous diaphragmatic hernia repair as a young child. In December of 2021 he was hospitalized here with a small-bowel obstruction that was thought secondary to adhesions from that childhood surgery. He was treated conservatively and had uncomplicated recovery. He had abnormality noted in his biliary tract on CT. As an outpatient had a subsequent MRCP which raise the possibility of common bile duct stones. He had normal LFTs and was asymptomatic. He was referred as an outpatient to GI but did not apparently follow through with that. He has not had any other gastrointestinal symptoms until yesterday. He was admitted to the hospital without an NG tube but then started vomiting so NG tube was placed. He reports his abdominal pain is mild. He is not seeking any medications for nausea or abdominal pain. He has no other health concerns. Today he is had multiple episodes of passing gas. No BM yet. No other concerns today. Exam Narrative: Exam Narrative: He is alert and appears in no distress. Abdomen: Bowel sounds active. Abdomen is soft with minimal tenderness. Const: Vital Signs, click to edit/add: Vital Signs - 24 hr 07/02/23 15:00 07/02/23 19:00 07/02/23 22:38 Temperature 98.8 F 99.1 F 99.7 F H Pulse Rate [Pulse Oximeter] 92 93 88 Respiratory Rate 18 20 16 Blood Pressure [Ri t Arm] 116/75 120/77 125/79 Pulse Oximetry 97 97 97 Oxygen Delivery Me thod Room Air Room Air Room Air 07/03/23 03:00 07/03/23 07:00 07/03/23 10:52 Temperature 99.1 F 99.0 F 98.7 F Pulse Rate [Pulse Oximeter] 88 82 94 Respiratory Rate 16 16 16 Blood Pressure [Ri ght Arm] 105/68 106/70 123/83 Pulse Oximetry 97 97 97 Oxygen Delivery Me thod Room Air Room Air Room Air Documenting provider has reviewed patient's vital signs: yes Labs Labs: Laboratory Results - last 24 hr 07/03/23 05:56 WBC 10.29 RBC 5.16 Hgb 14.9 Hct 43.3 MCV 84 MCH 29 MCHC 34 RDW Coeff of Ronald 12.1 Plt Count 268 Neut % (Auto) 75.8 H Lymph % (Auto) 13.6 L [place] % (Auto) 9.9 Eos % (Auto) 0.5 Baso % (Auto) 0.1 Neut # (Auto) 7.80 H Lymph # (Auto) 1.40 [place] # (Auto) 1.00 H Eos # (Auto) 0.05 Baso # (Auto) 0.01 Abs Immat Gran (auto) 0.01 Imm/Tot Granulo (auto) 0.1 Sodium 139 Potassium 3.7 Chloride 106 Carbon Dioxide 25 Anion Gap 8 BUN < 2 L Creatinine 0.6 Estimated Creat Clear 134.29 Estimated GFR 143 Glucose 110 Calcium 9.2
[2023-07-03 15:00] VITALS: BP 110/64; PULSE 79; RESP 20; TEMP 37.1; O2SAT 96
--- NOTE | 2023-07-03 18:36 | PC.NURSE ---
Patient pleasant, alert and oriented. Ambulating independently in room and in hallway. Denies any abdominal. Reported throat discomfort due to NG tube. Stated ice chips helped. NG tube removed per MD orders. Tolerated removal well. Patient reports throat less sore after removal. IV saline locked. Tolerating clear diet well without any nausea, vomiting or discomfort. VSS.
[2023-07-03 19:00] VITALS: BP 111/71; PULSE 85; RESP 16; TEMP 36.8; O2SAT 97
[2023-07-04 03:00] VITALS: BP 116/72; PULSE 85; RESP 16; TEMP 36.5; O2SAT 96
[2023-07-04 06:41] LABS: Basophils Absolute Auto 0.03 K/uL (0.00-0.30); Basophils Percent Auto 0.4 % (0.0-3.0); Eosinophils Percent Auto 1.3 % (0.0-7.0); Hematocrit 41.1 % (37.0-53.0); Hemoglobin* 14.6 gm/dL (13.5-17.5); Immature Granulocytes Abs Auto 0.01 K/uL (0.00-0.30); Immature Granulocytes Pct Auto 0.1 %; Lymphocytes Absolute Auto 1.59 K/uL (0.90-2.90); Lymphocytes Percent Auto 20.5 % (20-44); Mean Corpuscular HGB Conc 36 gm/dL (32-36); Mean Corpuscular Hemoglobin 29 pg (26-34); Mean Corpuscular Volume 82 fL (80-100); Monocytes Percent Auto 10.8 % (0.0-11.0); Neutrophils Absolute Auto 5.18 K/uL (1.7-7.0); Neutrophils Percent Auto 66.9 % (42.0-72.0); Platelet Count* 264 K/uL (140-440); RDW Coefficient of Variation % 12.1 % (11.5-15.5); White Blood Count* 7.75 K/uL (4.50-11.00)
[2023-07-04 06:57] LABS: Slide Review Reflex No
[2023-07-04 07:00] VITALS: BP 109/70; PULSE 71; PULSE 84; RESP 18; TEMP 36.8; O2SAT 96
[2023-07-04 07:00] LABS: Chloride* 105 mmol/L (96-114); Potassium* 3.8 mmol/L (3.6-5.1); Sodium* 136 mmol/L (135-149)
[2023-07-04 07:03] LABS: Anion Gap 5 mEq/L (7-15); Blood Urea Nitrogen* 5 mg/dL (5-24); Carbon Dioxide* 26 mmol/L (20-32); Creatinine* 0.6 mg/dL (0.6-1.2); Est. Creatinine Clearance* 134.29; Estimated Glomerular Filt Rate 143 ml/min
[2023-07-04 07:04] LABS: Calcium* 9.4 mg/dL (8.7-10.8); Glucose* 90 mg/dL (60-115)
--- NOTE | 2023-07-04 07:35 | PC.NURSE ---
End of shift [id number] - Pt alert, oriented and cooperative during shift. Pt denies pain, nausea, and dizziness. Abdomen is non-tender on palpation. Pt up independently in room and in halls. Tolerating clear liquids. Pt reports continuing to pass flatus, continent of bladder. Family at bedside during shift. Pt observed to sleep during shift, appears to be resting comfortably at end of shift. ?
--- NOTE | 2023-07-04 10:14 | P.GSPN_ITS ---
Subjective Subjective Date Seen: 07/04/23 Interval history: Patient doing well this morning. Tolerated a regular diet for breakfast. Denies any abdominal pain, nausea or vomiting. Is passing a lot of gas, but no BM. Exam Narrative: Exam Narrative: Abdomen: soft, non tender and non distended. Const: Vital Signs, click to edit/add: Vital Signs - 24 hr 07/03/23 10:52 07/03/23 15:00 07/03/23 19:00 Temperature 98.7 F 98.8 F 98.2 F Pulse Rate [Pulse Oximeter] 94 79 85 Respiratory Rate 16 20 16 Blood Pressure [Ri ght Arm] 123/83 110/64 111/71 Pulse Oximetry 97 96 97 Oxygen Delivery Me thod Room Air Room Air Room Air 07/04/23 03:00 07/04/23 07:00 Temperature 97.7 F 98.3 F Pulse Rate [Pulse Oximeter] 85 84 Respiratory Rate 16 18 Blood Pressure [Ri ght Arm] 116/72 109/70 Pulse Oximetry 96 96 Oxygen Delivery Me thod Room Air Room Air Progress Note: A&P Assessment and plan (1) SBO (small bowel obstruction): Problem details: IV pain medicines, IV fluids, IV antiemetics, NG tube. Plan conservative management. Consult surgery. He is better today and passing gas. NG tube has been clamped and is now removed. Start clear liquid diet. Status: Acute Assessment and Plan: Patient is a 17-year-old male, hospital day number 4 for small-bowel obstruction, likely secondary to adhesions. Tolerating a regular diet and pass ing gas. Would ideally want him to have a BM before being discharged. VSS and benign abdomen this morning.
[2023-07-04 11:00] VITALS: BP 116/71; PULSE 69; RESP 18; TEMP 36.6; O2SAT 97
[2023-07-04] MEDS: MAGNESIUM HYDROXIDE 30 ML ORAL.SUSP PO (12:07)
--- NOTE | 2023-07-04 15:14 | PM.DS1 ---
DS: Providers Provider Date Seen: 07/04/23 Date of admission: 07/01/23 09:25 Primary care physician: Not a Local Provider Admitting Clinician: Jose L Rodríguez MD Attending Physician on discharge: Tj Grey MD Date of Discharge: 07/04/23 DS: Diagnosis Discharge Diagnosis (1) SBO (small bowel obstruction): Status: Acute Problem details: 17-year-old male with recurrent small-bowel obstruction thought secondary to adhesions from childhood surgery from diaphragmatic hernia. Patient was managed conservatively with IV fluids an NG suctioning. NG tube was removed the day prior to discharge. He is regularly passing gas. He tolerated this well and has been taking clear liquids well. Today he was able to eat solid food. 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 Last small-bowel obstruction was a urine half ago. He was treated conservatively with NG suctioning and IV fluids. Day prior to discharge the NG tube was removed. He was started on clear liquids and has tolerated this well. He continues to pass gas. Day of discharge he is able to eat solid foods without difficulty. Status at Discharge Functional status at discharge: independent ambulation Overall status at discharge: patient is back to baseline Time Spent with Patient Time attestation: Total time spent providing and/or coordinating discharge services: Exam Narrative: Exam Narrative: He is alert and appears in no distress. Breathing is unlabored. Cardiovascular: S1, S2, regular rate and rhythm. Abdomen: Bowel sounds are very active. Abdomen is soft without tenderness or mass. He is observed to walk in the hallway without discomfort. Const: Vital Signs, click to edit/add: Vital Signs - 24 hr 07/03/23 19:00 07/04/23 03:00 07/04/23 07:00 Temperature 98.2 F 97.7 F 98.3 F Pulse Rate [Pulse Oximeter] 85 85 84 Respiratory Rate 16 16 18 Blood Pressure [Ri ght Arm] 111/71 116/72 109/70 Pulse Oximetry 97 96 96 Oxygen Delivery Me thod Room Air Room Air Room Air 07/04/23 07:00 07/04/23 11:00 Temperature 97.9 F Pulse Rate [Pulse Oximeter] 71 69 Respiratory Rate 18 18 Blood Pressure [Ri ght Arm] 116/71 Pulse Oximetry 97 Oxygen Delivery Me thod Room Air Documenting provider has reviewed patient's vital signs: yes DS: Data Data Completed and Pending Labs on day of discharge: Labs from last 24 hours 07/04/23 06:01 WBC 7.75 RBC 5.00 Hgb 14.6 Hct 41.1 MCV 82 MCH 29 MCHC 36 RDW Coeff of Ronald 12.1 Plt Count 264 Neut % (Auto) 66.9 Lymph % (Auto) 20.5 [place] % (Auto) 10.8 Eos % (Auto) 1.3 Baso % (Auto) 0.4 Neut # (Auto) 5.18 Lymph # (Auto) 1.59 [place] # (Auto) 0.80 Eos # (Auto) 0.10 Baso # (Auto) 0.03 Abs Immat Gran (auto) 0.01 Imm/Tot Granulo (auto) 0.1 Sodium 136 Potassium 3.8 Chloride 105 Carbon Dioxide 26 Anion Gap 5 L BUN 5 Creatinine 0.6 Estimated Creat Clear 134.29 Estimated GFR 143 Glucose 90 Calcium 9.4 Preliminary micro results at discharge 07/01/23 02:46 Blood Culture - Preliminary Blood NO GROWTH AFTER 72 HOURS 07/01/23 02:35 Blood Culture - Preliminary Blood NO GROWTH AFTER 72 HOURS Discharge Plan Discharge Disposition: Home, Self-Care Date of Admission: 07/01/23 09:25 Attending Provider on Discharge: Evens Grey Consulting Providers: Hafsa Mitchell Primary Care Provider: Provider,Not a Local Condition: Stable Anticipated Discharge Date/Time: 07/04/23 16:00 Discharge Medications: No Action No Known Home Medications Discharge Orders: Discharge Order (Routine); Ordered 07/04/23 Ordered By: Evens Grey Activity Level: No Restrictions and Other Discharge Diet: Regular and Other Follow Up Appointments: Marlee Olivo, [facility] [Heat Treating Operator Certified] - Provider,Not a Local [Primary Care Provider] - Forms: Hydrelis Info Instructions
--- NOTE | 2023-07-04 16:57 | PC.NURSE ---
Discharge-- Very pleasant and cooperative discharged to home ambulatory. VSS and pt is afebrile. SPO2 maintained >94% on RA. He denied any pain or nausea today. He tolerated a regular lunch without difficulty and stated a small BM this afternoon. Discharge education was provided including diagnosis info, symptoms to report and follow up plan. All questions answered and SL was removed with tip intact.
== END 2023-07-04 16:40 | disposition home or self-care (01) | DRG 390 ==
LOC: ED 03:27 → MEDSURG 03:56
PROVIDERS: Family Medicine; Admitting Provider Internal Medicine; Emergency Provider Internal Medicine; Visit Provider Internal Medicine
DX: K56.50 Intestinal adhesions [bands], unspecified as to partial versus complete obstruction (principal); R10.9 Unspecified abdominal pain; R11.2 Nausea with vomiting, unspecified; D75.1 Secondary polycythemia; E86.0 Dehydration; R50.9 Fever, unspecified; Z98.890 Other specified postprocedural states
CPT/HCPCS: 36415; 51798; 71045; 74177; 80048; 80053; 81003; 81015; 82150; 83605; 85025; 87040; 87086; 87186; 99283; 99284; A9270; G0378; J0780; J2405; J7030; J7120; Q9967